=== PATIENT | female | born 1965 | race Caucasian/White ===

== ENCOUNTER 2017-04-18 16:22 | Inpatient (IN) | payer OTHER ==
[~2017-04-18] VITALS: Ht 167.6 cm; Wt 70.8 kg
--- NOTE | 2017-04-18 16:27 | NUR ---
PRESENTS SELF TO ED DT RIGHT 2ND DIGIT REDNESS AND SWELLING NOTICED TODAY. PATIENT IS AAO4. APPEARS IN NO APPARENT DISTRESS, RESPIRATION EVEN AND UNLABORED. SKIN IS WARM TO TOUCH AND NON DIAPHORETIC. PATIENT IS AFEBRILE. PT WITH HX OF DM
--- NOTE | 2017-04-18 16:43 | NUR ---
LISETTE MENDOZA AT BEDSIDE FOR EVAL.
[2017-04-18 16:53] LABS: BASOPHILS % (AUTO) 0.2 % (0.0-2.0); EOSINOPHILS # (AUTO) 0.2 /CMM (0.0-0.7); EOSINOPHILS % (AUTO) 2.1 % (0.0-6.0); HEMATOCRIT 38 % (33-45); HEMOGLOBIN 12.7 g/dL (11.5-14.8); LYMPHOCYTES # (AUTO) 2.5 /CMM (0.8-4.8); LYMPHOCYTES % (AUTO) 28.5 % (20.0-44.0); MEAN CORPUSCULAR HEMOGLOBIN 30 PG (26.0-33.0); MEAN CORPUSCULAR HGB CONC 33 g/dl (31.0-36.0); MEAN CORPUSCULAR VOLUME 89 fL (82-100); MONOCYTES # (AUTO) 0.4 /CMM (0.1-1.30); MONOCYTES % (AUTO) 4.6 % (2.0-12.0); NEUTROPHILS # (AUTO) 5.8 /CMM (1.8-8.9); NEUTROPHILS % (AUTO) 64.6 % (43.0-81.0); PLATELET COUNT (AUTO) 300 /CMM (150-450); RDW COEFFICIENT OF VARIATION 11.7 (11.5-15.0); WHITE BLOOD COUNT (AUTO) 8.9 K/uL (4.3-11.0)
[2017-04-18] MEDS ORDERED: IV NS 0.9% 1,000 ML ONE ×2 (16:53→22:41)
[2017-04-18] MEDS ORDERED: IV SET PRIMARY PUMP SET 1 EA INFUS.SET MC ONE ×2 (16:53→22:41)
[2017-04-18] MEDS ORDERED: VANCOMYCIN 1 GM in IV D5W 250 ML IV ONE (17:00)
[2017-04-18] MEDS ORDERED: PIPERACILLIN /TAZOBACTAM 3.375 G in IV D5W 50 ML IV ONE (17:00)
[2017-04-18] MEDS ORDERED: IV NS 0.9% 1,000 ML BAG IV ONE (17:00)
[2017-04-18 17:06] LABS: INR 0.9 (0.87-1.13); PROTHROMBIN TIME 9.3 SECS (9.5-12.7)
--- NOTE | 2017-04-18 17:06 | NUR ---
CALLED PHARMACY FOR EVGENY
[2017-04-18 17:08] LABS: CALCIUM, SERUM 8.3 mg/dL (8.5-10.1); POTASSIUM 4.5 mmol/L (3.5-5.1)
[2017-04-18] MEDS ORDERED: IBUPROFEN 600 MG TABLET PO ONE ×2 (17:37→18:00)
[2017-04-18] MEDS ORDERED: INSULIN REGULAR, HUMAN 100 UNIT/ML 10 ML VIAL ONE ×2 (17:59→23:28)
[2017-04-18] MEDS ORDERED: INSULIN ASPART NOVOLOG 100 UNIT/ML CARTRIDGE SQ ONE (18:00)
[2017-04-18] MEDS ORDERED: BENA5TAB2 PO (18:06)
[2017-04-18] MEDS ORDERED: METF500T4 PO (18:06)
[2017-04-18] MEDS ORDERED: ATOR10TA PO (18:06)
[2017-04-18] MEDS ORDERED: GLIP5TAB13 PO (18:06)
--- NOTE | 2017-04-18 19:10 | NUR ---
REPORT GIVEN TO ISH. AWAITING TRANSFER TO FLOOR.
--- NOTE | 2017-04-18 19:14 | NUR ---
106 Addendum: 04/18/17 at 1914 by APASCUAL BED CHANGED TO 204-1
--- NOTE | 2017-04-18 19:20 | NUR ---
RECEIVED NEW ADMISSION FROM ER, FEMALE, ALERT AND ORIENTED X4, CALM, NO SOB, NO RESPIRATORY DISTRESS, LUNG SOUNDS ARE CLEAR, SP02 AT ROOM AIR 96%, ABDOMEN SOFT AND NON-TENDER, HAS PAIN OF 5/10 TO RIGHT TOES, RECEIVED IBUPROFEN FROM ER. RAC #20 SALINE LOCK IS PATENT AND INTACT. RIGHT BIG TOE CLOSED WOUND AND RIGHT 2ND TOE INFLAMMATION, CLEANSED WITH NS AND PROTECTED WITH KERLIX AND OFFLOADED. ORIENTED TO ROOM, TOILET AND USE OF CALL LIGHT, FAMILY AT THE BEDSIDE, WILL CONTINUE TO MONITOR.
--- NOTE | 2017-04-18 21:16 | NUR ---
NOTIFIED DR. IRWIN OF ADMISSION. AWAITING ADMISSION ORDERS
[2017-04-18 21:30] VITALS: BP 143/89
[2017-04-18] MEDS ORDERED: DEXTROSE 50%-WATER 50 ML DISP.SYRIN IV PRN (22:30)
[2017-04-18] MEDS ORDERED: ONDANSETRON HCL/PF 4 MG/2 ML VIAL IVP PRN (22:30)
[2017-04-18] MEDS ORDERED: ENOXAPARIN SODIUM 40 MG/0.4 ML DISP.SYRIN SQ SCH (22:30)
[2017-04-18] MEDS ORDERED: ZOLPIDEM TARTRATE 5 MG TABLET PO PRN (22:30)
[2017-04-18] MEDS ORDERED: VANCOMYCIN 1 GM in IV D5W 250 ML IV SCH (22:30)
[2017-04-18] MEDS ORDERED: Z GUARD REMEDY 2 OZ OINT TP PRN (22:30)
[2017-04-18] MEDS ORDERED: ENOXAPARIN SODIUM 40 MG/0.4 ML DISP.SYRIN SQ ONE (22:40)
[2017-04-18] MEDS: IV NS 0.9% 1,000 ML IV PRN (22:46)
[2017-04-19] MEDS: BLOOD SUGAR DIAGNOSTIC 1 EACH STRIP VI SCH ×4 (06:09→22:29)
[2017-04-19 06:27] LABS: BASOPHILS % (AUTO) 0.3 % (0.0-2.0); EOSINOPHILS # (AUTO) 0.3 /CMM (0.0-0.7); EOSINOPHILS % (AUTO) 3.6 % (0.0-6.0); HEMATOCRIT 38 % (33-45); HEMOGLOBIN 12.7 g/dL (11.5-14.8); LYMPHOCYTES # (AUTO) 3.3 /CMM (0.8-4.8); LYMPHOCYTES % (AUTO) 36.9 % (20.0-44.0); MEAN CORPUSCULAR HEMOGLOBIN 30 PG (26.0-33.0); MEAN CORPUSCULAR HGB CONC 34 g/dl (31.0-36.0); MEAN CORPUSCULAR VOLUME 90 fL (82-100); MONOCYTES # (AUTO) 0.4 /CMM (0.1-1.30); MONOCYTES % (AUTO) 4.4 % (2.0-12.0); NEUTROPHILS % (AUTO) 54.8 % (43.0-81.0); PLATELET COUNT (AUTO) 270 /CMM (150-450); RDW COEFFICIENT OF VARIATION 12.8 (11.5-15.0); RED BLOOD CELL COUNT(AUTO) 4.18 MIL/uL (4.0-5.2)
[2017-04-19] MEDS ORDERED: ACETAMINOPHEN 325 MG TABLET ONE (06:43)
[2017-04-19] MEDS: INSULIN REGULAR, HUMAN 100 UNIT/ML 3 ML VIAL SQ PRN ×3 (06:46→17:51)
[2017-04-19] MEDS: ACETAMINOPHEN 325 MG TABLET PO PRN ×3 (06:47→22:29)
--- NOTE | 2017-04-19 06:50 | NUR ---
PATIENT AWAKE AND ALERT NO SOB, NO RESPIRATORY DISTRESS, NO ADVERSE CHANGE OF CONDITION DURING SHIFT, COMPLAINING OF PAIN TO RIGHT FOOT OF 5/10, REFUSED MORPHINE, PREFERS TYLENOL 650 MG PO. NEEDS ATTENDED, CALL LIGHT WITHIN REACH.
[2017-04-19 06:52] LABS: ALBUMIN 2.7 g/dL (3.4-5.0); BILIRUBIN,TOTAL 0.1 mg/dL (0.2-1.0); CALCIUM, SERUM 8.2 mg/dL (8.5-10.1); CREATININE 0.7 mg/dL (0.6-1.3); MAGNESIUM 1.6 mg/dL (1.8-2.4); PHOSPHORUS 3.6 mg/dL (2.5-4.9); POTASSIUM 4.4 mmol/L (3.5-5.1); TOTAL PROTEIN, SERUM 6.4 g/dL (6.4-8.2)
[2017-04-19 06:54] LABS: THYROID STIMULATING HORMONE 2.729 uIU/mL (0.358-3.74)
--- NOTE | 2017-04-19 07:19 | NUR ---
MS RN OPENING NOTES PATIENT RECEIVED IN BED AWAKE WITH SON AT BEDSIDE. ALERT AND ORIENTED X4, DENIES PAIN OR DISCOMFORTS AT THIS TIME. IV ACCESS ON RIGHT AC INTACT AND PATENT WITH IVF OF NS @ 75ML/HR INFUSING WELL, NO S/S OF INFILTRATION NOTED. ON ROOM AIR, BREATHING EVEN AND UNLABORED. CALL LIGHT WITHIN REACH, BED LOW AND LOCKED. WILL MAINTAIN ALL SAFETY MEASURES AND WILL CONTINUE TO MONITOR PT ACCORDINGLY.
[2017-04-19 08:00] VITALS: BP 154/84
[2017-04-19] MEDS ORDERED: FEE PK DOSING 1 MIN EA MC ONE (08:23)
[2017-04-19] MEDS ORDERED: MORPHINE SULFATE INJ 4 MG/ML DISP.SYRIN IV PRN (08:30)
[2017-04-19] MEDS: METFORMIN 500 MG TABLET PO SCH ×2 (08:30→17:02)
[2017-04-19] MEDS: PANTOPRAZOLE 40 MG TABLET.DR PO SCH (08:30)
[2017-04-19] MEDS: BENAZEPRIL HCL 5 MG TABLET PO SCH (08:31)
[2017-04-19] MEDS ORDERED: SECONDARY IV SET 1 EA INFUS.SET MC ONE ×2 (08:48→11:52)
[2017-04-19] MEDS: VANCOMYCIN 1 GM in IV D5W 250 ML IV SCH ×2 (08:53→21:00)
[2017-04-19] MEDS: glipiZIDE 5 MG TABLET PO SCH ×2 (08:53→17:03)
--- NOTE | 2017-04-19 11:24 | NUR ---
WOUND CARE CONSULT: PT PRESENTS WITH VERY RED SWOLLEN RT 2ND TOE AND CALLUS TO DISTAL TOE AND RT HALLUX, PRESENT ON ADMISSION. NO DRAINAGE NOTED. DPM CONSULT CALLED BY DR MCKEON TO DR CARTY. MEGAN SCORE IS 23. PT REFUSED FULL SKIN ASSESSMENT. WILL SEE PRN. Addendum: 04/19/17 at 1126 by DEDRA SULTANA WNDNU Amended: Links added.
[2017-04-19] MEDS: Magnesium 1GM/D5W 100ML PREMIX 100 ML IV SCH ×2 (11:57→13:02)
--- NOTE | 2017-04-19 12:16 | NUR ---
MRI APPPROVED BY DR. MCGOWAN.
--- NOTE | 2017-04-19 12:22 | NUR ---
SPOKE TO NURSE GALEN GREY 5.30PM.AND TO HAVE MRI CHECKLIST READY.
[2017-04-19 14:04] VITALS: BP 154/84
--- NOTE | 2017-04-19 15:41 | NUR ---
RN NOTES PATIENT JUST LEFT VIA WHEELCHAIR FOR MRI OF RIGHT FOOT W/O CONTRAST. CHECKLIST DONE AND SIGNED BY PATIENT. WILL FOLLOW-UP RESULTS.
[2017-04-19 16:00] VITALS: BP 140/70
--- NOTE | 2017-04-19 17:01 | NUR ---
RN NOTES DR CARTY ORDERED TO OBTAIN CONSENT FOR RIGHT FOOT WOUND DEBRIDEMENT. EXPLAINED PROCEDURE TO PT AND VERBALIZED UNDERSTANDING. DR CARTY CAME TO UNIT AND DID WOUND DEBRIDEMENT ON RIGHT 2ND TOE, SAME COLLECTED WOUND CULTURE AND CALLED LABORATORY TO PICK-UP. WILL CONTINUE TO MONITOR.
[2017-04-19] MEDS: IV NS 0.9% 1,000 ML IV PRN (17:59)
--- NOTE | 2017-04-19 18:57 | NUR ---
MS RN CLOSING NOTES PATIENT RESTING IN BED WITH FAMILY AT BEDSIDE. ALERT AND ORIENTED X4, VERBALLY RESPONSIVE. DRESSING TO RIGHT FOOT INTACT, DRY AND CLEAN. ALL NEEDS AND CARE PROVIDED WELL. IV ACCESS ON RIGHT AC INTACT AND PATENT WITH IVF OF NS @ 75ML/HR INFUSING WELL, NO SIGNS OF INFILTRATION NOTED. ON ROOM AIR, BREATHING EVEN AND UNLABORED. CALL LIGHT WITHIN REACH, BED LOW AND LOCKED. ALL SAFETY MEASURES MAINTAINED. WILL ENDORSED TO CROSSBAR SWITCH ADJUSTER RN FOR MICHI.
[2017-04-19 19:00] VITALS: BP 142/77
--- NOTE | 2017-04-19 19:35 | NUR ---
MS RN NOTES RECEIVED ON BED,A/O X3-4,S/P DEBRIDEMENT RIGHT SECOND TOE OSTEOMYLITIS.DRESSING INTACT AND DRY.ENCOURAGED TO ELEVATE ON PILLOWS.PAIN BEARABLE AT THE MOMENT.VISITORS AT BEDSIDE.NS 75ML/HR RATE IN PROGRESS VIA IV PUMP,SITE PATENT.AWAITING MRI RESULT ON RIGHT FOOT FOR FURTHER CARE AND MANAGEMENT.CALL LIGHT IN REACH,NEEDS ANTICIPATED.
[2017-04-19 19:59] VITALS: BP 142/77
--- NOTE | 2017-04-19 21:00 | NUR ---
MS RN NOTES DUE VANCOMYCIN 1GM IVPB HUNG
[2017-04-19] MEDS: ENOXAPARIN SODIUM 40 MG/0.4 ML DISP.SYRIN SQ SCH (21:01)
--- NOTE | 2017-04-19 21:30 | NUR ---
MS RN NOTES IV SITE INFILTRATED.NEW SALINE LOCK PLACE ON LEFT FOREARM #22.VANCOMYCIN INFUSING.
[2017-04-19] MEDS: ATORVASTATIN 10 MG TABLET PO SCH (22:29)
--- NOTE | 2017-04-19 22:29 | NUR ---
MS RN NOTES PAIN MANAGEMENT C/O PAIN VIA RIGHT FOOT 3/10 ON PAIN SCALE,MEDICATED WITH TYLENOL 650 MG PO PER PATIENT REQUEST.
--- NOTE | 2017-04-19 22:30 | NUR ---
MS RN NOTES ACCU-CHECK BLOOD SUGAR CHECK 317,COVERED WITH HUMULIN 8 UNITS PER HS SLIDING SCALE.,SNACKS OFFERED BUT REFUSED.
[2017-04-19] MEDS: *INSULIN REGULAR(HUMULIN R)HUM 100 UNIT/ML VIAL SQ PRN (22:39)
--- NOTE | 2017-04-20 02:00 | NUR ---
MS RN NOTES SLEEPING THIS TIME,FAMILY MEMBER AT BEDSIDE
--- NOTE | 2017-04-20 06:37 | NUR ---
MS RN NOTES ABLE TO AMBULATE TO THE TOILET,PAIN BEARABLE AT THE MOMENT.MEDICATED ONCE WITH TYLENOL AND ITS EFFECTIVE.RIGHT FOOT ELEVATED ON PILLOW AT ALL TIMES. TO PREVENT SWELLIG.IN NO ACUTE DISTRESS.WILL ENDORSED O DAY NURSE FOR MICHI.
--- NOTE | 2017-04-20 07:20 | NUR ---
RN OPEN NOTES RECEIVED REPORT FROM STRAIGHTENING ROLL OPERATOR NURSE. PATIENT IS IN BED, ALERT AND ORIENTED TO NAME, PLACE AND TIME. SON IS SLEEPING AT BEDSIDE. BED IN LOW POSITION, LOCKED AND TWO SIDE RAILS ARE UP. NO SIGNS AND SYMPTOMS OF DISTRESS. DIALYSIS TODAY. WILL CONTINUE TO MONITOR AND ASSESS PATIENT.
--- NOTE | 2017-04-20 07:20 | NUR ---
MS RN NOTES PAIN MANAGEMENT C/O PAIN VIA RIGHT FOOT3/10 ON PAIN SCALE.MEDICATED WITH TYLENOL 650MG PO ORDERED.
[2017-04-20] MEDS: ACETAMINOPHEN 325 MG TABLET PO PRN ×2 (07:29→14:10)
[2017-04-20] MEDS: BLOOD SUGAR DIAGNOSTIC 1 EACH STRIP VI SCH ×4 (07:29→22:29)
[2017-04-20] MEDS: PANTOPRAZOLE 40 MG TABLET.DR PO SCH (07:30)
--- NOTE | 2017-04-20 07:30 | NUR ---
MS RN NOTES ACCU-CHECK BLOOD SUGAR CHECK 284,COVERED WITH HUMULIN R 9 UNITS PER SLIDING SCALE.
[2017-04-20] MEDS: INSULIN REGULAR, HUMAN 100 UNIT/ML 3 ML VIAL SQ PRN ×3 (07:35→17:08)
[2017-04-20 07:57] LABS: BASOPHILS % (AUTO) 0.3 % (0.0-2.0); EOSINOPHILS # (AUTO) 0.3 /CMM (0.0-0.7); EOSINOPHILS % (AUTO) 3.8 % (0.0-6.0); HEMATOCRIT 39 % (33-45); HEMOGLOBIN 13.3 g/dL (11.5-14.8); LYMPHOCYTES # (AUTO) 2.7 /CMM (0.8-4.8); LYMPHOCYTES % (AUTO) 34.3 % (20.0-44.0); MEAN CORPUSCULAR HEMOGLOBIN 30 PG (26.0-33.0); MEAN CORPUSCULAR HGB CONC 34 g/dl (31.0-36.0); MEAN CORPUSCULAR VOLUME 89 fL (82-100); MONOCYTES # (AUTO) 0.4 /CMM (0.1-1.30); NEUTROPHILS # (AUTO) 4.4 /CMM (1.8-8.9); NEUTROPHILS % (AUTO) 56.6 % (43.0-81.0); PLATELET COUNT (AUTO) 266 /CMM (150-450); RDW COEFFICIENT OF VARIATION 12.8 (11.5-15.0); RED BLOOD CELL COUNT(AUTO) 4.45 MIL/uL (4.0-5.2); WHITE BLOOD COUNT (AUTO) 7.8 K/uL (4.3-11.0)
[2017-04-20 08:00] VITALS: BP 141/71
[2017-04-20] MEDS: VANCOMYCIN 1 GM in IV D5W 250 ML IV SCH (08:28)
[2017-04-20] MEDS: BENAZEPRIL HCL 5 MG TABLET PO SCH (08:28)
[2017-04-20 08:30] LABS: CALCIUM, SERUM 8.4 mg/dL (8.5-10.1); CREATININE 0.7 mg/dL (0.6-1.3); POTASSIUM 4.4 mmol/L (3.5-5.1)
[2017-04-20] MEDS: glipiZIDE 5 MG TABLET PO SCH ×2 (08:30→17:06)
[2017-04-20] MEDS: METFORMIN 500 MG TABLET PO SCH ×2 (08:30→17:06)
[2017-04-20 08:31] LABS: MAGNESIUM 1.5 mg/dL (1.8-2.4)
[2017-04-20] MEDS ORDERED: SECONDARY IV SET 1 EA INFUS.SET MC ONE (11:43)
[2017-04-20] MEDS: Magnesium 1GM/D5W 100ML PREMIX 100 ML IV SCH ×2 (12:05→13:21)
[2017-04-20 16:00] VITALS: BP 124/79
--- NOTE | 2017-04-20 19:34 | NUR ---
RN CLOSING NOTES GAVE REPORT TO BODY COVERER NURSE. NO SIGNS AND SYMPTOMS OF DISTRESS. DENIED PAIN. VITAL SIGNS ARE STABLE. IV SITE IN INTACT AND PATENT. BED IN LOW POSITION, LOCKED AND TWO SIDE RAILS ARE UP. PATIENT KEPT CLEAN AND DRY. ALL NEEDS ANTICIPATED.
[2017-04-20 19:53] VITALS: BP 148/76
[2017-04-20] MEDS ORDERED: CEFTRIAXONE 2 G in IV D5W 100 ML IV SCH (20:00)
--- NOTE | 2017-04-20 20:00 | NUR ---
MS2/RN RECEIVE PATIENT AWAKE, ALERT, ORIENTED, COMFORTABLE, NO C/O PAIN, NO SIGNS OF DISTRESS NOTED, IVF INFUSING WELL, CALL LIGHT IN REACH. WILL MONITOR.
[2017-04-20] MEDS: ATORVASTATIN 10 MG TABLET PO SCH (22:18)
[2017-04-20] MEDS: ENOXAPARIN SODIUM 40 MG/0.4 ML DISP.SYRIN SQ SCH (22:19)
[2017-04-20] MEDS: *INSULIN REGULAR(HUMULIN R)HUM 100 UNIT/ML VIAL SQ PRN (22:32)
[2017-04-21 06:51] LABS: CREATININE 0.6 mg/dL (0.6-1.3); MAGNESIUM 1.7 mg/dL (1.8-2.4); POTASSIUM 5.2 mmol/L (3.5-5.1)
[2017-04-21] MEDS: IV NS 0.9% 1,000 ML IV PRN (07:01)
[2017-04-21] MEDS: INSULIN REGULAR, HUMAN 100 UNIT/ML 3 ML VIAL SQ PRN ×2 (07:02→11:42)
[2017-04-21] MEDS: BLOOD SUGAR DIAGNOSTIC 1 EACH STRIP VI SCH ×4 (07:05→23:22)
--- NOTE | 2017-04-21 07:11 | NUR ---
MS2/RN PATIENT IS STILL SLEEPING AT THIS TIME, EASILY AROUSABLE, APPEAR COMFORTABLE, NO SIGNS OF DISTRESS NOTED, CALL LIGHT IN REACH. ALL NEEDS ATTENDED AT THIS TIME. WILL CONTINUE TO MONITOR.
--- NOTE | 2017-04-21 07:45 | NUR ---
MS RN OPENING NOTE PATIENT IS ALERT AND ORIENTED x4. NO PAIN AT THIS TIME. NO SOB OR DISTRESS NOTED. CALL LIGHT WITHIN REACH. SAFETY MEASURES IMPLEMENTED. IV INTACT AND PATENT NO REDNESS OR SWELLING NOTED, IV FLUIDS RUNNING. ABLE TO COMMUNICATE NEEDS. WILL CONTINUE TO MONITOR
[2017-04-21 08:00] VITALS: BP 140/76
[2017-04-21] MEDS: PANTOPRAZOLE 40 MG TABLET.DR PO SCH (08:07)
[2017-04-21] MEDS: METFORMIN 500 MG TABLET PO SCH ×2 (08:07→16:38)
[2017-04-21] MEDS: ACETAMINOPHEN 325 MG TABLET PO PRN ×3 (08:07→20:04)
[2017-04-21] MEDS: glipiZIDE 5 MG TABLET PO SCH ×2 (08:07→16:38)
[2017-04-21] MEDS: BENAZEPRIL HCL 5 MG TABLET PO SCH (08:09)
--- NOTE | 2017-04-21 10:00 | NUR ---
MS RN NOTE NOTIFIED DR. CHANDRA ABOUT PATIENT'S POTASSIUM GOING FROM 4.4 TO 5.2 NO NEW ORDERS AT THIS TIME. WILL CONTINUE TO MONITOR
[2017-04-21] MEDS: Magnesium 1GM/D5W 100ML PREMIX 100 ML IV SCH ×2 (11:31→12:41)
[2017-04-21 16:00] VITALS: BP 138/76
[2017-04-21] MEDS: LACTOBACILLUS RHAMNOSUS GG 1 EACH CAP.SPRINK PO SCH (16:38)
[2017-04-21] MEDS ORDERED: FEE PK DOSING 1 MIN EA MC ONE (17:36)
--- NOTE | 2017-04-21 18:36 | NUR ---
MS RN CLOSING NOTE PATIENT IS ALERT AND ORIENTED x4. NO PAIN AT THIS TIME. NO SOB OR DISTRESS NOTED. CALL LIGHT WITHIN REACH AT ALL TIMES. SAFETY MEASURES IMPLEMENTED. ABLE TO COMMUNICATE NEEDS. IV INTACT AND PATENT NO REDNESS OR SWELLING NOTED. POSSIBLE DISCHARGE TOMORROW, AWAITING FOR HOME HEALTH. PATIENT REFUSED INSULIN THIS AFTERNOON. WILL ENDORSE TO AUDIOMETRIC TECHNICIAN NURSE
[2017-04-21] MEDS: VANCOMYCIN 1 GM in IV D5W 250 ML IV SCH (19:17)
[2017-04-21 20:00] VITALS: BP 149/79
--- NOTE | 2017-04-21 20:06 | NUR ---
MS2/RN C/O HEADACHE TYLENOL 650 MG PO WAS GIVEN ORDERED. WILL MONITOR.
--- NOTE | 2017-04-21 20:07 | NUR ---
per ID, patient will need IV Vanco [id number] with pharmacy to dose for osteomyelitis and staph aureus culture result. Faxed referral to [facility] [phone]. Addendum: 04/21/17 at 2007 by MALINDA HINES RN Amended: Links added.
[2017-04-21] MEDS: ATORVASTATIN 10 MG TABLET PO SCH (21:51)
[2017-04-21] MEDS: ENOXAPARIN SODIUM 40 MG/0.4 ML DISP.SYRIN SQ SCH (21:52)
[2017-04-21] MEDS: *INSULIN REGULAR(HUMULIN R)HUM 100 UNIT/ML VIAL SQ PRN (23:24)
[2017-04-21] MEDS ORDERED: IBUPROFEN 600 MG TABLET PO ONE (23:48)
[2017-04-21 23:53] LABS: APPEARANCE,URINE CLEAR (CLEAR); BILIRUBIN,URINE NEGATIVE (NEGATIVE); BLOOD, URINE 1+ Ery/uL (NEGATIVE); COLOR,URINE YELLOW (YELLOW); KETONES,URINE NEGATIVE (NEGATIVE); LEUKOCYTE ESTERASE ,URINE NEGATIVE (NEGATIVE); NITRITE, URINE NEGATIVE (NEGATIVE); PROTEIN,URINE NEGATIVE (NEGATIVE); UGLUCOSE 2+ mg/dL (NEGATIVE); UROBILINOGEN,URINE 0.2 EU/dL (0.2)
--- NOTE | 2017-04-21 23:55 | NUR ---
MS2/RN PATIENT C/O HEAD ACHE 07/20, REFUSED TYLENOL THIS TIME AND WANTS IBUPROFEN. CALLED [facility] AND SPOKE TO ALVIN, RECEIVED ORDER FOR MOTRIN 600 MG PO Q 8 HOURS. CARRIED OUT AND ADMINISTERED. WILL CONTINUE TO MONITOR.
[2017-04-21 23:56] LABS: WBC,URINE 0-2 /HPF (0-3)
[2017-04-21 23:57] LABS: BACTERIA,URINE None seen /HPF (None Seen); SQUAMOUS EPITHELIAL CELL,UR Rare /HPF (None Seen)
[2017-04-22] MEDS ORDERED: IBUPROFEN 600 MG TABLET PO PRN
--- NOTE | 2017-04-22 00:54 | NUR ---
MS2/RN PATIENT IS SLEEPING AT THIS TIME, AROUSABLE, APPEAR COMFORTABLE, NO SIGNS OF DISTRESS NOTED, CALL LIGHT IN REACH. WILL CONTINUE TO MONITOR.
[2017-04-22] MEDS: IV NS 0.9% 1,000 ML IV PRN (06:03)
[2017-04-22] MEDS: VANCOMYCIN 1 GM in IV D5W 250 ML IV SCH ×2 (06:03→18:25)
[2017-04-22] MEDS: INSULIN REGULAR, HUMAN 100 UNIT/ML 3 ML VIAL SQ PRN ×3 (06:33→17:53)
[2017-04-22 06:43] LABS: CALCIUM, SERUM 8.3 mg/dL (8.5-10.1); CREATININE 0.7 mg/dL (0.6-1.3); MAGNESIUM 1.6 mg/dL (1.8-2.4); POTASSIUM 4.4 mmol/L (3.5-5.1)
[2017-04-22] MEDS: BLOOD SUGAR DIAGNOSTIC 1 EACH STRIP VI SCH ×4 (06:44→21:48)
--- NOTE | 2017-04-22 06:56 | NUR ---
MS2/RN PATIENT IS AWAKE, ALERT, ORIENTED, ALL NEEDS ATTENDED AT THIS TIME. WILL CONTINUE TO MONITOR.
--- NOTE | 2017-04-22 07:50 | NUR ---
MS RN OPENING NOTE PATIENT IS ALERT AND ORIENTED X4. NO PAIN AT THIS TIME. NO SOB OR DISTRESS NOTED. CALL LIGHT WITHIN REACH. SAFETY MEASURES IMPLEMENTED. IV INTACT AND PATENT NO REDNESS OR SWELLING NOTED. ABLE TO COMMUNICATE NEEDS. POSSIBLE DISCHARGE TODAY. WILL CONTINUE TO MONITOR
[2017-04-22 08:00] VITALS: BP 139/69
[2017-04-22] MEDS: METFORMIN 500 MG TABLET PO SCH ×2 (08:53→17:25)
[2017-04-22] MEDS: glipiZIDE 5 MG TABLET PO SCH ×2 (08:54→17:25)
[2017-04-22] MEDS: BENAZEPRIL HCL 5 MG TABLET PO SCH (08:54)
[2017-04-22] MEDS: LACTOBACILLUS RHAMNOSUS GG 1 EACH CAP.SPRINK PO SCH ×2 (08:54→17:25)
[2017-04-22] MEDS: PANTOPRAZOLE 40 MG TABLET.DR PO SCH (08:54)
[2017-04-22] MEDS ORDERED: Magnesium 1GM/D5W 100ML PREMIX 100 ML IV SCH (11:03)
[2017-04-22] MEDS ORDERED: MAGNESIUM OXIDE 400 MG TABLET PO ONE (12:00)
[2017-04-22 16:00] VITALS: BP 139/76
--- NOTE | 2017-04-22 18:51 | NUR ---
MS RN CLOSING NOTE PATIENT IS ALERT AND ORIENTED x4. NO PAIN AT THIS TIME. NO SOB OR DISTRESS NOTED. CALL LIGHT WITHIN REACH AT ALL TIMES. SAFETY MEASURES IMPLEMENTED. ALL DUE MEDICATION GIVEN ORDERED.WOUND DRESSING CHANGED x3. PATIENT HAS ORDER TO BE DISCHARGE WITH HOME HEALTH, PER CASE MANAGEMENT STILL WORKING ON HOME HEALTH. ALL DISCHARGE DOCUMENTS READY TO GO, IN PATIENT'S CHART. PATIENT WILL BE GOING HOME WITH [facility]LINE FOR 6 WEEK ANTIBIOTIC COURSE TX. WILL ENDORSE TO RESIDENT INTERN NURSE
--- NOTE | 2017-04-22 19:45 | NUR ---
MSRN FULLY AWAKE, FAMILY AT BEDSIDE. ALL NEEDS MADE. FOR DC IN AM ONCE HH ARRANGED. PRESENT IVF INFUSING WELL. RIGHT TOE DRESSING INTACT. SAFETY PRECAUTIONS EMPHASIZED, WELL UNDERSTOOD.
[2017-04-22 20:00] VITALS: BP 136/79
[2017-04-22] MEDS: CEFTRIAXONE 2 G in IV D5W 100 ML IV SCH (21:21)
[2017-04-22] MEDS: ATORVASTATIN 10 MG TABLET PO SCH (21:21)
[2017-04-22] MEDS ORDERED: SECONDARY IV SET 1 EA INFUS.SET MC ONE (21:22)
[2017-04-22] MEDS: ENOXAPARIN SODIUM 40 MG/0.4 ML DISP.SYRIN SQ SCH (21:22)
--- NOTE | 2017-04-22 21:40 | NUR ---
MSRN DUE MEDS GIVEN, BS WAS 260 COVERED WITH 6 UNITS OF REG INSULIN SQ. SNACKS PROVIDED BY FAMILY.
[2017-04-22] MEDS: *INSULIN REGULAR(HUMULIN R)HUM 100 UNIT/ML VIAL SQ PRN (21:52)
--- NOTE | 2017-04-23 03:11 | NUR ---
MSRN SLEEPING APPEARS COMFORTABLE.
[2017-04-23] MEDS: BLOOD SUGAR DIAGNOSTIC 1 EACH STRIP VI SCH ×3 (06:41→16:57)
[2017-04-23] MEDS: INSULIN REGULAR, HUMAN 100 UNIT/ML 3 ML VIAL SQ PRN ×3 (06:43→17:01)
[2017-04-23 06:53] LABS: CALCIUM, SERUM 8.5 mg/dL (8.5-10.1); CREATININE 0.7 mg/dL (0.6-1.3); MAGNESIUM 1.4 mg/dL (1.8-2.4); POTASSIUM 4.6 mmol/L (3.5-5.1)
--- NOTE | 2017-04-23 06:59 | NUR ---
MSRN BS WAS 242 COVERED WITH 6 UNITS OF REGULAR INSULIN SQ. EAGER TO GO HOME
--- NOTE | 2017-04-23 07:44 | NUR ---
AM RN NOTE Received patient sleeping comfortably in her bed, no acute distress noted. No SOB noted resp even and non-labored. IV site intact and patent. Bed in low locked position. Will continue to monitor. Call light with in reach.
[2017-04-23 08:00] VITALS: BP 139/80
[2017-04-23] MEDS: BENAZEPRIL HCL 5 MG TABLET PO SCH (08:48)
[2017-04-23] MEDS: glipiZIDE 5 MG TABLET PO SCH ×2 (08:48→16:58)
[2017-04-23] MEDS: LACTOBACILLUS RHAMNOSUS GG 1 EACH CAP.SPRINK PO SCH ×2 (08:48→16:58)
[2017-04-23] MEDS: PANTOPRAZOLE 40 MG TABLET.DR PO SCH (08:48)
[2017-04-23] MEDS: METFORMIN 500 MG TABLET PO SCH ×2 (08:48→16:58)
[2017-04-23] MEDS ORDERED: SECONDARY IV SET 1 EA INFUS.SET MC ONE (09:24)
[2017-04-23] MEDS: Magnesium 1GM/D5W 100ML PREMIX 100 ML IV SCH ×4 (09:28→13:55)
--- NOTE | 2017-04-23 10:30 | NUR ---
AM RN NOTE Florian Wilson (Dpm) changed dressing for right foot and pictures taken and placed in chart.
[2017-04-23] MEDS ORDERED: MAGN400T6 PO (11:42)
[2017-04-23 16:00] VITALS: BP 132/75
--- NOTE | 2017-04-23 17:45 | NUR ---
Spoke with Anne-Marie MITCHELL @ [facility] [phone] provided approval for [facility] to provide IV Rocephin 2gm daily x6 weeks and nursing with [facility] [phone] to start service in am. Per Tamy at [facility] pharmacy [phone] they will arrange delivery of medication tonight. Spoke with daughter, aware and agreed with current dc plan. Per Anne-Marie MITCHELL @ [facility], they will contact patient for her pcp follow up appointment at [facility]. Addendum: 04/23/17 at 1851 by MALINDA HINES RN Amended: Links added.
--- NOTE | 2017-04-23 18:00 | NUR ---
AM RN NOTE Patient awake, A/O X4 verbally responsive. Discharge instructions on medications and teachings given and pt verbalize understanding. Midline on ALFRED intact and patent. Per [employer], awaiting for pharmacy response to deliver medications at home after pt gets discharge. Pt denies any pain at this time. Will endorse care to next shift.
--- NOTE | 2017-04-23 18:41 | NUR ---
AM RN NOTE Discharge order given by Dr. Greene, noted and carried out. Patient ok to discharge per Nicole ([email or web address]). Pt seen and assessed by Waldemar (LAUREEN) at this time. Awaiting for Spouse to come and order picker pt and will endorse to next shift.
[2017-04-23] MEDS: CEFTRIAXONE 2 G in IV D5W 100 ML IV SCH (19:27)
--- NOTE | 2017-04-23 20:15 | NUR ---
PATIENT SAFELY DISCHARGED TO HOME WITH FAMILY MEMBERS, ESCORTED IN A WHEELCHAIR ACCOMPANIED BY DIAMOND BROKER. ADMINISTERED ROCEPHIN 2GM BEFORE DC, REMOVED ID BAND, KEEP THE MID LINE FOR ABX FOR HOME HEALTH. IMAGING CD GIVEN PER PATIENT'S REQUEST, DISCHARGE PACKET GIVEN TO HER DAUGHTER WELL.
== END 2017-04-23 20:15 | disposition home health service (06) | DRG 320 ==
LOC: ER 16:24 → MEDSG2 19:21
PROVIDERS: ADMIT Nurse Practitioner Acute Care; ATTEND Nurse Practitioner Acute Care
PROC: 0QBQ0ZZ Excision of Right Toe Phalanx, Open Approach (ICD-10-PCS; principal; 2017-04-19)
PROC: 05H633Z Insertion of Infusion Device into Left Subclavian Vein, Percutaneous Approach (ICD-10-PCS; 2017-04-20)
DX: E11.69 Type 2 diabetes mellitus with other specified complication (principal); M86.8X7 Other osteomyelitis, ankle and foot; E11.40 Type 2 diabetes mellitus with diabetic neuropathy, unspecified; E44.0 Moderate protein-calorie malnutrition; E11.621 Type 2 diabetes mellitus with foot ulcer; E11.65 Type 2 diabetes mellitus with hyperglycemia; E87.1 Hypo-osmolality and hyponatremia; L03.115 Cellulitis of right lower limb; E78.5 Hyperlipidemia, unspecified; I10 Essential (primary) hypertension; E83.42 Hypomagnesemia; E88.09 Other disorders of plasma-protein metabolism, not elsewhere classified; Z68.25 Body mass index [BMI] 25.0-25.9, adult; Z79.84 Long term (current) use of oral hypoglycemic drugs; L97.514 Non-pressure chronic ulcer of other part of right foot with necrosis of bone; B95.1 Streptococcus, group B, as the cause of diseases classified elsewhere; B95.7 Other staphylococcus as the cause of diseases classified elsewhere
CPT/HCPCS: 36415; 73660-TC; 73718-TC; 80048-TC; 80053-TC; 80061-TC; 80202-TC; 81000-TC; 82962-TC; 83735-TC; 84100-TC; 84443-TC; 85025-TC; 85652-TC; 85730-TC; 86140-TC; 87070-TC; 87081-TC; A4217; A4606; A6402; A6403; J0696; J1650; J1815; J2270; J2543; J3370; J3475; J7030; J7060; Z7610

== ENCOUNTER 2017-05-08 20:49 | Emergency (ER) | payer OTHER ==
[~2017-05-08 20:49] MED LIST: ATOR10TA PO; BENA5TAB2 PO; GLIP5TAB13 PO; MAGN400T6 PO; METF500T4 PO
== END 2017-05-08 21:02 | disposition left against medical advice (07) ==
LOC: ER 20:50
DX: Z53.21 Procedure and treatment not carried out due to patient leaving prior to being seen by health care provider (principal)